=== PATIENT | female | born 1995 | race American Indian/Alaskan Native ===

== ENCOUNTER 2017-11-30 21:31 | Emergency (ER) | payer BC ==
[~2017-11-30] VITALS: Ht 170.2 cm; Wt 56.2 kg
[2017-11-30 23:10] VITALS: BP 110/70
== END 2017-11-30 23:11 | disposition home or self-care (01) ==
LOC: FSED 21:31
DX: K62.5 Hemorrhage of anus and rectum (principal); K60.2 Anal fissure, unspecified
CPT/HCPCS: 85025; 99282